=== PATIENT | male | born 2000 | race Caucasian/White ===

== ENCOUNTER 2023-08-13 00:36 | Emergency (ER) | payer OTHER ==
[~2023-08-13] VITALS: Ht 182.9 cm; Wt 102.3 kg
[2023-08-13 01:12] VITALS: BP 126/68; TEMP 97.3; O2SAT 98
[2023-08-13] MEDS ORDERED: ERYT5OIN25 OS (01:33)
[2023-08-13] MEDS: ERYTHROMYCIN OPHTH OINT OS ONE (01:39)
== END 2023-08-13 01:49 | disposition home or self-care (01) ==
LOC: M ED 00:36
DX: H10.022 Other mucopurulent conjunctivitis, left eye (principal)